=== PATIENT | male | born 1985 | race Caucasian/White ===

== ENCOUNTER 2024-03-16 10:02 | Outpatient (CLI) | payer BC, SELFPAY | END 2024-03-16 10:03 | disposition home or self-care (01) | LOC: LKVREF 10:04 | PROVIDERS: PCP Family Medicine; Visit Provider Emergency Medicine | DX: M54.6 Pain in thoracic spine (principal); M51.34 Other intervertebral disc degeneration, thoracic region; M54.9 Dorsalgia, unspecified | CPT/HCPCS: 86140 ==

== ENCOUNTER 2024-10-20 08:30 | Outpatient (CLI) | payer BC, SELFPAY | END 2024-10-20 08:31 | disposition home or self-care (01) | PROVIDERS: PCP Family Medicine; Visit Provider Family Medicine | DX: Z00.00 Encounter for general adult medical examination without abnormal findings (principal); Z13.228 Encounter for screening for other metabolic disorders; Z13.6 Encounter for screening for cardiovascular disorders | CPT/HCPCS: 80048; 80061 ==